=== PATIENT | male | born 1990 | race Caucasian/White ===

== ENCOUNTER 2016-12-05 20:45 | Emergency (ER) | payer OTHER ==
[2016-12-05 20:47] VITALS: BP 158/95; PULSE 104; RESP 15; TEMP 98.8; O2SAT 99
[2016-12-05] MEDS ORDERED: TETANUS/DIPHTHERIA TOXOID ADULT 0.5 ML VIAL IM ONE (23:45)
[2016-12-05] MEDS ORDERED: CEPH-460 PO (23:51)
--- NOTE | 2016-12-05 23:51 | PD ---
HPI Chief Complaint: Laceration/Skin Injury Time Seen by Provider: 23:41 Travel History International Travel<30 days: No Contact w/Intl Traveler<30days: No Traveled to known affect area: No History of Present Illness HPI The patient is a 26-year-old male who presents emergency department for laceration above the right eyebrow. The patient is currently visiting from [place], [place] when he received a laceration to the right frontal forehead. The laceration occurred sometime prior tonight fall, occurred on Wednesday afternoon, he placed Steri- Strips over the affected area, but states it is still somewhat painful. He cannot recall his last tetanus shot. The patient denies any other current complaints. REPLACED BY [facility] Past Medical History Medical History: Denies Significant Hx Past Surgical History Narrative Surgical Noncontributory Social History Tobacco Use: No Allergies-Medications (Allergen,Severity, Reaction): Coded Allergies: No Known Allergies (Unverified , 12/05/16) Review of Systems HENT: No: Headaches Gastrointestinal: No: Nausea Skin: Positive Other (laceration to the forehead that occurred over 24 hours ago) Neurologic: No: Dizziness Physical Exam Narrative GENERAL: Awake, alert, pleasant 26-year-old male who appears his stated age and is in no acute respiratory distress. SKIN: Focused skin assessment warm/dry. Patient has a 4 cm slightly jagged laceration to the right frontal forehead with dried blood over the surrounding area. HEAD: 4 cm laceration that is jagged above the right eyebrow. Dry blood of the affected area, no acute bleeding. EYES: Pupils equal and round. No scleral icterus. No injection or drainage. MUSCULOSKELETAL: No obvious deformities. No clubbing. No cyanosis. No edema. NEUROLOGICAL: Awake and alert. No obvious cranial nerve deficits. Motor grossly within normal limits. Normal speech. PSYCHIATRIC: Appropriate mood and affect; insight and judgment normal. Data Data Last Documented VS Vital Signs Date Time Temp Pulse Resp B/P Pulse Ox O2 Delivery O2 Flow Rate FiO2 12/05/16 20:47 98.8 104 15 158/95 99 Room Air Orders Tetanus/Diphtheria Tox Adult (Tetanus/Di (12/05/16 23:45) Wound Care (12/05/16 23:41) MDM Medical Decision Making Medical Screen Exam Complete: Yes Emergency Medical Condition: Yes Medical Record Reviewed: Yes Differential Diagnosis Differential diagnoses includes laceration, abrasion, contusion, hematoma. Narrative Course The patient's laceration occurred over 24 hours ago, approximate 28-29 hours ago. The patient has dry blood over the affected area, it was cleaned with sterile saline, the edges did not bleed, I do not believe the patient will do well with primary closure, he will need secondary closure. We will apply Steri- Strips and Polysporin. He is advised to keep the area clean and dry, Polysporin twice a day, Keflex as directed, and if he does not like the cosmetic appearance he can follow-up plastic surgery after the secondary closure. Patient agrees and understands. Diagnosis Primary Impression: Laceration of forehead Qualified Code: S01.81XA - Laceration of forehead, initial encounter Patient Instructions: General Instructions Additional Instructions: Allow area to heal by secondary intention. Steri-Strips and Polysporin as directed. Keflex as directed. After the wound heals, keep it out of the sun or use some block. Follow-up plastic surgery if cosmetic appearance is not acceptable after secondary closure. Med/Other Pt SpecificInfo: Prescription(s) given Scripts Cephalexin (Keflex)500 Mg [id number] Mg PO Q6H 7 Days Ref 0 Prov:Stephen Vazquez MD 12/05/16 Disposition: 01 DISCHARGE HOME Condition: Stable Stephen Vazquez MD Dec 05, 2016 23:51
== END 2016-12-06 00:30 | disposition home or self-care (01) ==
LOC: NEPD 20:45
DX: S01.81XA Laceration without foreign body of other part of head, initial encounter (principal); Z23 Encounter for immunization; X58.XXXA Exposure to other specified factors, initial encounter; Y92.832 Beach as the place of occurrence of the external cause
CPT/HCPCS: 90471; 90714